=== PATIENT | male | born 1980 | race African-American/Black ===

== ENCOUNTER 2017-02-20 12:49 | Emergency (ER) | payer MEDICARE, MEDICAID ==
[~2017-02-20] VITALS: Ht 177.8 cm; Wt 85.0 kg
[~2017-02-20 12:49] MED LIST: Z.0.NO CURRENT MEDS
[2017-02-20 12:54] VITALS: BP 162/84; PULSE 92; RESP 17; TEMP 97.9; O2SAT 99
[2017-02-20] MEDS ORDERED: LIDOCAINE HCL 1% 50 ML VIAL INFIL ONE (13:15)
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
== END 2017-02-20 13:44 | disposition home or self-care (01) ==
LOC: NEPD 12:49
DX: S01.111A Laceration without foreign body of right eyelid and periocular area, initial encounter (principal); Y04.2XXA Assault by strike against or bumped into by another person, initial encounter; F17.200 Nicotine dependence, unspecified, uncomplicated
CPT/HCPCS: 12011

== ENCOUNTER 2017-02-27 00:34 | Emergency (ER) | payer MEDICARE, MEDICAID ==
[~2017-02-27] VITALS: Ht 172.7 cm; Wt 88.0 kg
[2017-02-27 00:49] VITALS: BP 165/88; PULSE 87; RESP 18; TEMP 98.6; O2SAT 94
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
== END 2017-02-27 02:32 | disposition home or self-care (01) ==
LOC: NEPD 00:34
DX: T81.33XA Disruption of traumatic injury wound repair, initial encounter (principal); Z72.0 Tobacco use
CPT/HCPCS: 99282

== ENCOUNTER 2017-03-30 03:23 | Emergency (ER) | payer MEDICARE, MEDICAID ==
[2017-03-30 03:25] VITALS: BP 138/91; PULSE 96; RESP 16; TEMP 98.4; O2SAT 97
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
[2017-03-30] MEDS ORDERED: LIDOCAINE 1%/EPINEPHrine 1:100,000 SOLN 20 ML VIAL INFIL ONE (04:15)
[2017-03-30] MEDS ORDERED: TETANUS/DIPHTHERIA TOXOID ADULT 0.5 ML VIAL IM ONE (04:15)
== END 2017-03-30 05:43 | disposition home or self-care (01) ==
LOC: NEPD 03:23
DX: S01.511A Laceration without foreign body of lip, initial encounter (principal); W26.0XXA Contact with knife, initial encounter; Z72.0 Tobacco use; Z23 Encounter for immunization
CPT/HCPCS: 12011; 90471; 90714